=== PATIENT | male | born 1950 | race Caucasian/White ===

== ENCOUNTER 2019-09-19 12:06 | Emergency (ER) | payer BC, OTHER ==
[~2019-09-19] VITALS: Ht 182.9 cm; Wt 79.4 kg
[2019-09-19] MEDS ORDERED: FISH OIL 1,0001 EAC9 PO (12:23)
[2019-09-19] MEDS ORDERED: MULTI VITAMIN1 EACH PO (12:23)
[2019-09-19 14:03] VITALS: BP 121/75
== END 2019-09-19 14:04 | disposition home or self-care (01) ==
LOC: ER 12:06
DX: S00.81XA Abrasion of other part of head, initial encounter (principal); W01.0XXA Fall on same level from slipping, tripping and stumbling without subsequent striking against object, initial encounter; Y93.89 Activity, other specified; Y92.524 Gas station as the place of occurrence of the external cause; Y99.8 Other external cause status